=== PATIENT | male | born 1985 | race African-American/Black ===

== ENCOUNTER 2023-12-12 16:17 | Inpatient (IN) | payer OTHER ==
[2023-12-12 16:50] VITALS: BMI 19.1
[2023-12-12] MEDS ORDERED: BENZONATATE 200 MG CAPSULE PO PRN (19:49)
[2023-12-12] MEDS ORDERED: POLYETHYLENE GLYCOL (HEALTHYLAX) 3350 17 GM PACKET PO PRN (19:49)
[2023-12-12] MEDS ORDERED: hydrOXYzine PAMOATE 25 MG CAPSULE (FP) PO PRN (19:49)
[2023-12-12] MEDS ORDERED: IBUPROFEN 400 MG TABLET (FP) PO PRN (19:49)
[2023-12-12] MEDS ORDERED: BENZOCAINE/MENTHOL (CHLORASEPTIC ) LOZENGE MM PRN (19:49)
[2023-12-12] MEDS ORDERED: NALOXONE HCL 0.4 MG/ML VIAL IM PRN (19:49)
[2023-12-12] MEDS ORDERED: NALOXONE HCL (KLOXXADO) 8 MG SPRAY NS PRN (19:49)
[2023-12-12] MEDS ORDERED: guaiFENesin 600 MG TABLET.ER (FP) PO PRN (19:49)
[2023-12-12] MEDS ORDERED: MAG HYDROX/AL HYDROX/SIMETH 30 ML UNIT-DOSE CUP PO PRN (19:49)
[2023-12-12] MEDS ORDERED: LOPERAMIDE HCL 2 MG CAPSULE PO PRN (19:49)
[2023-12-12] MEDS: THIAMINE 100 MG TABLET PO SCH (23:15)
[2023-12-12] MEDS: MELATONIN 5 MG TABLETS PO SCH (23:15)
[2023-12-13] MEDS: BICTEGRAV/EMTRICIT/TENOFOV (BIKTARVY) 50-200-25 MG TABLET PO SCH (07:34)
[2023-12-13 08:22] LABS: CHLORIDE 108 mmol/L (98-107); POTASSIUM 4.2 mmol/L (3.5-5.1); SODIUM 141 mmol/L (136-145)
[2023-12-13 08:28] LABS: ALBUMIN 2.8 g/dl (3.4-5.0); CALCIUM 8.7 mg/dL (8.5-10.1)
[2023-12-13 08:29] LABS: ANION GAP 4 mmol/L (4-13); BLOOD UREA NITROGEN 12.7 mg/dL (7-18); CO2 29 mmol/L (21-32); GLUCOSE,RANDOM 86 mg/dL (74-106)
[2023-12-13 08:31] LABS: CREATININE 0.9 mg/dL (0.55-1.3); SGOT/AST 51 U/L (15-37); SGPT/ALT 43 U/L (13-61)
[2023-12-13 08:33] LABS: BILIRUBIN,TOTAL 0.3 mg/dL (0.2-1)
[2023-12-13 08:34] LABS: ALK PHOS 78 U/L (45-117)
[2023-12-13 08:35] LABS: HEMATOCRIT 37.1 % (35.4-49); HEMOGLOBIN 12.5 GM/dL (11.7-16.9); MCH 26.6 pg (25.7-33.7); MCHC 33.6 g/dl (32.0-35.9); MEAN CELL VOLUME 79.1 fl (80-96); MEAN PLT VOLUME 8.8 fl (7.5-11.1); PLATELET COUNT 266 10^3/uL (134-434); RBC 4.69 M/mm3 (4.00-5.60); WHITE BLOOD COUNT 7.4 K/mm3 (4.0-10.0)
[2023-12-13] MEDS: PRENATAL VITAMINS W/ FOLIC ACID TABLET (FP) PO SCH (09:21)
[2023-12-13] MEDS ORDERED: PRENATAL VITAMINS W/ FOLIC ACID TABLET (FP) PO SCH (10:00)
[2023-12-13] MEDS: PNEUMOC 20-VAL CONJ-DIP CRM/PF 0.5 ML SYRINGE IM ONE (12:02)
[2023-12-13] MEDS: FLU VACCINE (FLULAVAL) PF 60 MCG/0.5 ML SYRINGE 2023-2024 IM ONE (12:03)
[2023-12-13 13:27] LABS: SYPHILIS W/ RPR CONF REACTIVE (NONREACTIVE)
[2023-12-13 14:40] LABS: PH,URINE 6.5 (5.0-8.0); URINE APPEARANCE CLEAR; URINE BILIRUBIN NEGATIVE (NEGATIVE); URINE COLOR YELLOW; URINE GLUCOSE (UA) NEGATIVE (NEGATIVE); URINE KETONE TRACE (NEGATIVE); URINE LEUK ESTERASE NEGATIVE (NEGATIVE); URINE NITRITE NEGATIVE (NEGATIVE); URINE PROTEIN TRACE (NEGATIVE); URINE UROBILINOGEN 0.2 mg/dL (0.2-1.0)
[2023-12-14] MEDS: MAGNESIUM HYDROX 2400MG/30ML ORAL SUSPENSION 30 ML CUP PO PRN (11:31)
[2023-12-14] MEDS: PENICILLIN G BENZATHINE 2,400,000 UNIT/4 ML PFS IM ONE (16:34)
[2023-12-14] MEDS: IBUPROFEN 600 MG TABLET (FP) PO PRN (19:52)
[2023-12-17] MEDS: SERTRALINE HCL 50 MG TABLET (FP) PO SCH (09:22)
[2023-12-17] MEDS: CLINDAMYCIN PHOSPHATE 1% TOPICAL GEL 30 GM TUBE TP SCH (15:33)
[2023-12-18] MEDS: ACETAMINOPHEN 325 MG TABLET (FP) PO PRN (09:37)
[2023-12-19 07:07] VITALS: TEMP 97.3
[2023-12-20 06:47] VITALS: BP 114/68; PULSE 82; RESP 16
[2023-12-20] MEDS: PENICILLIN G BENZATHINE 2,400,000 UNIT/4 ML PFS IM ONE ×2 (11:21→11:23)
[2023-12-21] MEDS ORDERED: PENICILLIN G BENZATHINE 2,400,000 UNIT/4 ML PFS IM ONE (10:00)
[2023-12-28] MEDS ORDERED: PENICILLIN G BENZATHINE 2,400,000 UNIT/4 ML PFS IM ONE (10:00)
== END 2023-12-20 11:30 | disposition home or self-care (01) | DRG 772 ==
LOC: YASAS 16:17 → Y3NR 21:11 → Y3W 12-13 12:28 → UNDODISIN 12-13 13:31
PROVIDERS: ADMIT Allergy & Immunology; ATTEND Psychiatry & Neurology Pain Medicine
PROC: HZ42ZZZ Group Counseling for Substance Abuse Treatment, Cognitive-Behavioral (ICD-10-PCS; principal; 2023-12-12)
DX: F15.20 Other stimulant dependence, uncomplicated (principal); F14.10 Cocaine abuse, uncomplicated; F17.200 Nicotine dependence, unspecified, uncomplicated; F19.24 Other psychoactive substance dependence with psychoactive substance-induced mood disorder; F41.9 Anxiety disorder, unspecified; F32.A Depression, unspecified; Z21 Asymptomatic human immunodeficiency virus [HIV] infection status; Z79.899 Other long term (current) drug therapy; Z86.19 Personal history of other infectious and parasitic diseases
CPT/HCPCS: 36415; 80053; 80305; 80307; 81003; 85027; 86593; 86780; 86803; 87811; 90677; 90686; 93005; 93010; G0008; G0009